=== PATIENT | female | born 1970 | race African-American/Black ===

== ENCOUNTER 2020-05-02 23:06 | Emergency (ER) | payer OTHER ==
[~2020-05-02] VITALS: Ht 165.1 cm; Wt 124.7 kg
[2020-05-02] MEDS ORDERED: TIROSINT100 MCG PO (23:13)
[2020-05-02] MEDS ORDERED: CLONIDINE HCL0.2 M2 PO (23:13)
[2020-05-02] MEDS ORDERED: CRESTOR40 MG PO (23:14)
[2020-05-03 00:28] LABS: ABSOLUTE NEUTROPHILS 4.2 thou/uL (1.4-8.2); BASOPHILS 0.7 % (0.0-2.0); EOSINOPHILS 0.9 % (0.0-3.0); LYMPHOCYTES 41.2 % (24.0-44.0); MCH 31.3 pg (26.0-34.0); MCV 89.4 fL (80.0-100.0); MONOCYTES 5.1 % (1.0-8.0); PLATELET COUNT 255 thou/uL (150-400); POLYS 52.1 % (36.0-66.0); RBC 4.48 mil/uL (4.20-5.00); RDW 13.2 % (10.5-14.5)
[2020-05-03 00:31] LABS: ANION GAP 10 mmol/L (7-16); BUN 14 mg/dL (7-18); CHLORIDE 101 mmol/L (98-107); CO2 29 mmol/L (21-32); CREATININE 1.1 mg/dL (0.6-1.0); GLUCOSE 135 mg/dL (74-106); POTASSIUM 3.4 mmol/L (3.5-5.1); SODIUM 140 mmol/L (136-145)
[2020-05-03 00:40] LABS: TROPONIN-I <0.06 ng/mL (<0.06)
[2020-05-03] MEDS ORDERED: REGLAN 5 MG TAB5 MG PO (03:53)
[2020-05-03] MEDS ORDERED: ZESTRIL20 MG PO (03:53)
[2020-05-03 04:34] VITALS: BP 117/59
--- NOTE | 2020-05-03 11:52 | EKG ---
[facility] [place] [address] ELECTROCARDIOGRAM REPORT Name: DIAZ BEARD Room #: DEP [facility]#: [id number] Admission: 05/02/20 Attend Phys: Discharge: 05/03/20 Date of : 74 Report #: [id number] THIS REPORT FOR: cc: ANDREINA - No family physician/PCP FAM - No family physician/PCP Peter Meza MD ~ THIS REPORT FOR: //name// [facility] ED Test Date: 2020-05-02 Test Time: 23:11:56 Pat Name: DIAZ BEARD Department: Room: Gender: [employer]: [facility] : 1970 Requested By: Shiloh Torres Order Number: [id number] MD: Peter Meza Measurements Intervals Landing Rate: 64 P: 51 MD: 164 QRS: 21 QRSD: 109 T: 43 QT: 513 QTc: 530 Interpretive Statements Sinus rhythm Probable left atrial enlargement Abnormal inferior Q waves Compared to ECG 10/02/2007 21:05:05 Electronically Signed On 05-03-2020 11:51:25 CDT by Peter Meza [email or web address] <ELECTRONICALLY SIGNED> By: Peter Meza MD 05/03/20 1151 10 10 Peter Meza MD /EPI
== END 2020-05-03 04:40 | disposition home or self-care (01) ==
LOC: ER 23:06
PROVIDERS: Emergency Medicine
DX: I10 Essential (primary) hypertension (principal); R07.89 Other chest pain; R51 Headache; R06.02 Shortness of breath; Z98.51 Tubal ligation status; Z79.899 Other long term (current) drug therapy